=== PATIENT | male | born 1985 | race Two or more races ===

== ENCOUNTER 2024-04-24 14:03 | Outpatient (RCR) | payer MEDICAID, SELFPAY ==
--- NOTE | 2024-05-12 21:19 | CTCFLWUP_ITS ---
Patient: RAKESH ROCHE : 1985 Page 5 of 6 FOLLOW UP NOTE DATE OF SERVICE: 04/24/2024 NAME: RAKESH ROCHE ACCOUNT: [id number] : 1985 AGE: 38 INTERVAL HISTORY: Patient doing well . 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 2018: Mr. Roche had a right orchiectomy for what appears to be right inguinal hernia repair according to Mr. Roche. 08/2022: Mr. Roche had a left orchiectomy at [facility] oncology history from [facility] 07/07/2023: CT scan of the abdomen and pelvis with IV contrast 07/07/2023: CT scan of the chest without contrast 07/24/2023: Beta-hCG 7. 08/08/2022: Beta-hCG 16. 08/21/2023: Patient was started on cycle 1 of BEP chemotherapy. 09/11/2023: Mr. Roche is started on cycle 2 of BEP chemotherapy. 09/12/2023: Beta-hCG less than 5 10/25/2023: Patient completed third cycle of BEP chemotherapy. 11/21/2023: Beta-hCG less than 0, AFP 2.70 12/15/2023: CT scan of the neck, chest and abdomen with and without contrast OTHER MEDICAL HISTORY/CONDITIONS: Testicular?cancer?-?dx?08/[address] [facility] Left orchiectomy - 08/2022 - [facility] Right orchiectomy - 2017 - Dr. Derrick Cespedes Right inguinal hernia repair - age 24 FAMILY HISTORY: Cancer History:?Mat amhtfsoobae-kijigdcdmm-sf 60's;Mat aunt-breast - dx 50's SOCIAL HISTORY: Occupational?History:?Unemployed Education?Level:?Completed High School Marital?Status:? Tobacco?Use:?Denies ETOH?Use:?5-6?beers/week?x?21?yrs Drug?Note:?Denies Social?History?Note:?Lives?with? MEDICATIONS: 1. hydroxyzine HCl - 25 mg 1 tab Every day before sleep 2. insulin asp prt-insulin aspart - 100 unit/mL (70-30) 1 Daily 3. Jardiance - 25 mg 1 tab Daily 4. metFORMIN - 1,000 mg 1 tab Twice a Day 5. pantoprazole - 20 mg 1 Daily 6. testosterone - 20.25 mg/1.25 gram (1.62 %) 81 mg Daily Medications Last Reconciled by Sylvie Holm RN on 04/24/2024 ALLERGIES: No Known Drug Allergies REVIEW OF SYSTEMS: A complete 14-point review of systems was performed and is negative except as noted in interval histo ry. PHYSICAL EXAMINATION: VITAL SIGNS: Temperature?99.1, B/P?151/98, Oxygen?Saturation?97% Weight?238?lbs PAIN: 0 - No pain ECOG Performance Status: 0 - Asymptomatic and fully active GENERAL APPEARANCE: Appears well, in no apparent distress, appropriately interactive. HEENT: Normocephalic, no temporal wasting, normal conjunctiva, no scleral icterus, normal hearing, li ps without lesions, neck normal range of motion. CARDIOVASCULAR: Not assessed. PULMONARY: Normal respiratory effort, no respiratory distress or use of accessory muscles, speaking i n full sentences, no tachypnea. EXTREMITIES: No pedal edema or cyanosis. SKIN: Normal skin appearance. NEUROLOGIC: Alert and oriented x4. PSHYCHIATRIC: Appropriate affect, mood normal, behavior normal, intact thought and speech. LABORATORY DATA: I have personally reviewed and interpreted each of the patient?s relevant lab tests, abnormal finding s are below: Date 12/22/23 ??GLUCOSE,RANDOM?(mg/dL) 126?H ??BLOOD?UREA?NITROGEN?(mg/dL) 5?L ??CREATININE?(mg/dL) 0.90 ??SODIUM?(mmol/L) 136 ??POTASSIUM?(mmol/L) 3.8 ??CHLORIDE?(mmol/L) 102 ??CrCl?(CandG)?(ml/min) 122.22 ??CALCIUM,?SERUM?(mg/dL) 10.1 ASSESSMENT/PLAN: 1. 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 CT scan of the chest abdomen pelvis with and without contrast showed a 7 mm pulmonary nodule in the a nterior segment of the right upper lobe and small abdominal pelvic lymph nodes measuring 3 to 8 mm as documented above are noted. S/p 3 cycles of BEP chemotherapy completed on 10/25/2023. Left-sided neck masS is not palpable any longer. His beta-hCG has decreased to less than 0, AFP 2.70 (11/21/2023) CBC, CMP, beta-hCG as well as AFP today as well as prior to next visit in [address] scan of the neck, chest abdomen and pelvis with and without contrast to be done 1 week prior to ne xt visit in 3 months. ORDERS: Cbc,cmp,b hcg,ldh RETURN TO CLINIC: 6 months BILLING AND COMPLIANCE: I reviewed external records from providers outside my specialty as summarized above. I spent a total of 50 minutes on this patient?s care on the day of their visit excluding time spent related to any bi lled procedures. This time includes time spent with the patient as well as time spent documenting in the medical record, reviewing patients records and tests, obtaining history, placing orders, communi cating with other healthcare professionals, counseling the patient, family or caregiver, and/or care coordination for the diagnoses above. Electronically Signed by: Eusebio Bob MD T: 9:17 PM CC: PCP: Referring: Fuad Andres This document was completed utilizing speech recognition software. Grammatical errors, random word in sertions, pronoun errors, and incomplete sentences are an occasional consequence of this system due t o software limitations, ambient noise, and hardware issues. Any formal questions or concerns about th e content, text or information contained within the body of this dictation should be directly address ed to the provider for clarification.
== END 2024-05-14 23:59 | disposition home or self-care (01) ==
LOC: SCTC 14:03
PROVIDERS: PCP Family Medicine; Referring Provider Family Medicine; Visit Provider Internal Medicine Hematology & Oncology
DX: C62.12 Malignant neoplasm of descended left testis (principal); R91.1 Solitary pulmonary nodule; R59.0 Localized enlarged lymph nodes
CPT/HCPCS: 99212; Q3014; G0463

== ENCOUNTER 2024-06-20 14:18 | Outpatient (RCR) | payer MEDICAID, SELFPAY ==
[2024-06-19 16:10] LABS: Basophils % (Auto) 1 % (0-2.5); Eosinophils % (Auto) 1 % (0-10); Hematocrit 45.3 % (41.0-53.0); Hemoglobin 15.5 g/dL (13.5-16.0); Immature Granulocytes % (Auto) 1 % (0-0); Immature Granulocytes Auto 0.07 Thou/mm3 (0.00-0.00); Lymphocytes # (Auto) 1.2 Thou/mm3 (1.0-4.8); Lymphocytes % (Auto) 15 % (10-50); Mean Corpuscular HGB Conc 34.2 g/dl (31.0-37.0); Mean Corpuscular Hemoglobin 31.5 pg (25.0-35.0); Mean Corpuscular Volume 92 fL (80-100); Monocytes # (Auto) 0.7 Thou/mm3 (0.0-0.8); Monocytes % (Auto) 9 % (0-12); Neutrophils # (Auto) 5.8 Thou/mm3 (1.8-7.7); Neutrophils % (Auto) 74 % (37-80); Nucleated Red Blood Cell % 0 /100 WBC (0); Platelet Count 200 Thou/mm3 (140-440); RDW Standard Deviation 41.6 fL (35.1-43.9); Red Blood Count 4.92 Miln/mm3 (4.50-5.90); White Blood Count 7.8 Thou/mm3 (3.8-10.6)
[2024-06-19 16:46] LABS: Alanine Aminotransferase 75 U/L (10-49); Albumin, Serum 4.8 gm/dL (3.5-5.0); Albumin/Globulin Ratio 1.7 (1.2-2.2); Alkaline Phosphatase 106 U/L (46-116); Anion Gap 14 (7-16); Aspartate Amino Transferase 35 U/L (0-34); BUN/Creatinine Ratio 11 Ratio (12-20); Bilirubin,Total 0.6 mg/dL (0.3-1.2); Blood Urea Nitrogen 9 mg/dL (9-23); Calcium 9.3 mg/dL (8.3-10.6); Calcium (Corrected) 9.3 mg/dL (8.5-10.1); Carbon Dioxide 22.1 mMol/L (20.0-31.0); Chloride 100 mMol/L (98-107); Creatinine (Component) 0.8 mg/dL (0.6-1.3); Globulin 2.9 gm/dL (2.3-3.5); Glucose 105 mg/dL (74-106); LDH (Lactate Dehydrogenase) 199 U/L (120-246); Osmolality,Calculated 270 (275-295); Potassium 3.3 mMol/L (3.4-5.1); Sodium 136 mMol/L (136-145); Total Protein 7.7 gm/dL (5.7-8.2); eGFR > 60 See Note
--- NOTE | 2024-06-23 22:48 | CTCFLWUP_ITS ---
Patient: RAKSEH ROCHE : 1985 Page 5 of 6 FOLLOW UP NOTE DATE OF SERVICE: 06/20/2024 NAME: RAKESH ROCHE ACCOUNT: [id number] : 1985 AGE: 39 INTERVAL HISTORY: Patient doing well . ONCOLOGY HISTORY: DIAGNOSIS: Malignant neoplasm of descended left testis [ICD10] C62.12 DATE OF DIAGNOSIS: STAGE/TNM: Stage 3 TREATMENT HISTORY: Care?Plan Start?Date Cycle Day Intent Cisplat?Etoposide?Bleomycin?q21?days?3?cycles 08/21/2023 1 21 Curative?(adjuvant) HISTORY OF PRESENT ILLNESS: Rakesh Roche is a 39-year-old ENG speaking male with following oncology history. 2018: Mr. Roche had a right orchiectomy for what appears to be right inguinal hernia repair according to Mr. Roche. 08/2022: Mr. Roche had a left orchiectomy at [facility] oncology history from [facility] 07/07/2023: CT scan of the abdomen and pelvis with IV contrast 07/07/2023: CT scan of the chest without contrast 07/24/2023: Beta-hCG 7. 08/08/2022: Beta-hCG 16. 08/21/2023: Patient was started on cycle 1 of BEP chemotherapy. 09/11/2023: Mr. Roche is started on cycle 2 of BEP chemotherapy. 09/12/2023: Beta-hCG less than 5 10/25/2023: Patient completed third cycle of BEP chemotherapy. 11/21/2023: Beta-hCG less than 0, AFP 2.70 12/15/2023: CT scan of the neck, chest and abdomen with and without contrast OTHER MEDICAL HISTORY/CONDITIONS: Testicular?cancer?-?dx?08/2022 [facility] Left orchiectomy - 08/2022 - [facility] Right orchiectomy - 2017 - Dr. Derrick Cespedes Right inguinal hernia repair - age 24 FAMILY HISTORY: Cancer History:?Mat gbsxycnccod-deqjbfwlwe-ps 60's;Mat aunt-breast - dx 50's SOCIAL HISTORY: Occupational?History:?Unemployed Education?Level:?Completed High School Marital?Status:? Tobacco?Use:?Denies ETOH?Use:?5-6?beers/week?x?21?yrs Drug?Note:?Denies Social?History?Note:?Lives?with? MEDICATIONS: 1. hydroxyzine HCl - 25 mg 1 tab Every day before sleep 2. insulin asp prt-insulin aspart - 100 unit/mL (70-30) 1 Daily 3. Jardiance - 25 mg 1 tab Daily 4. metFORMIN - 1,000 mg 1 tab Daily 5. Ozempic - 0.25 mg or 0.5 mg (2 mg/3 mL) Weekly 6. pantoprazole - 20 mg 1 Daily 7. testosterone - 20.25 mg/1.25 gram (1.62 %) 81 mg Daily Medications Last Reconciled by Irena Torres MA on 06/20/2024 ALLERGIES: No Known Drug Allergies REVIEW OF SYSTEMS: A complete 14-point review of systems was performed and is negative except as noted in interval history. PHYSICAL EXAMINATION: VITAL SIGNS: Temperature?99.9, B/P?143/87, Oxygen?Saturation?98% Weight?240?lbs (Change?since?06/19/24:?-0.6?lbs) PAIN: 0 - No pain ECOG Performance Status: 0 - Asymptomatic and fully active GENERAL APPEARANCE: Appears well, in no apparent distress, appropriately interactive. HEENT: Normocephalic, no temporal wasting, normal conjunctiva, no scleral icterus, normal hearing, lips without lesions, neck normal range of motion. CARDIOVASCULAR: Not assessed. PULMONARY: Normal respiratory effort, no respiratory distress or use of accessory muscles, speaking in full sentences, no tachypnea. EXTREMITIES: No pedal edema or cyanosis. SKIN: Normal skin appearance. NEUROLOGIC: Alert and oriented x4. PSHYCHIATRIC: Appropriate affect, mood normal, behavior normal, intact thought and speech. LABORATORY DATA: I have personally reviewed and interpreted each of the patient?s relevant lab tests, abnormal findings are below: Date 06/19/24 ??WHITE?BLOOD?COUNT?(Thou/mm3) 7.8 ??RED?BLOOD?COUNT?(Miln/mm3) 4.92 ??HEMOGLOBIN?(gm/dl) 15.5 ??HEMATOCRIT?(%) 45.3 ??PLATELET?COUNT?(Thou/mm3) 200 ??NEUTROPHILS?%,?AUTO?(%) 74 ??LYMPH?%,?AUTO?(%) 15 ??NEUTROPHILS,?AUTO?(Thou/mm3) 5.8 ASSESSMENT/PLAN: 1. 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 CT scan of the chest abdomen pelvis with and without contrast showed a 7 mm pulmonary nodule in the anterior segment of the right upper lobe and small abdominal pelvic lymph nodes measuring 3 to 8 mm as documented above are noted. S/p 3 cycles of BEP chemotherapy completed on 10/25/2023. Left-sided neck masS is not palpable any longer. His beta-hCG has decreased to less than 0, AFP 2.70 (11/21/2023) CBC, CMP, beta-hCG as well as AFP today as well as prior to next visit in [address] scan of the neck, chest abdomen and pelvis with and without contrast to be done 1 week prior to next visit in 3 months. ORDERS: Cbc,cmp,ferritin.ldh,uric vit b12 Sleep study RETURN TO CLINIC: 2 months BILLING AND COMPLIANCE: I reviewed external records from providers outside my specialty as summarized above. I spent a total of 50 minutes on this patient?s care on the day of their visit excluding time spent related to any billed procedures. This time includes time spent with the patient as well as time spent documenting in the medical record, reviewing patients records and tests, obtaining history, placing orders, communicating with other healthcare professionals, counseling the patient, family or caregiver, and/or care coordination for the diagnoses above. Electronically Signed by: Eusebio Bob MD T: 10:46 PM CC: PCP: Referring: Fuad Andres This document was completed utilizing speech recognition software. Grammatical errors, random word insertions, pronoun errors, and incomplete sentences are an occasional consequence of this system due to software limitations, ambient noise, and hardware issues. Any formal questions or concerns about the content, text or information contained within the body of this dictation should be directly addressed to the provider for clarification.
[2024-06-25 06:54] LABS: HCG Total,Male (Tumor Marker)* <5 mIU/mL (<5)
== END 2024-07-12 23:59 | disposition home or self-care (01) ==
LOC: SCTC 14:18
PROVIDERS: PCP Family Medicine; Referring Provider Family Medicine; Visit Provider Internal Medicine Hematology & Oncology
DX: C62.12 Malignant neoplasm of descended left testis (principal); Z90.79 Acquired absence of other genital organ(s); R91.1 Solitary pulmonary nodule; Z92.21 Personal history of antineoplastic chemotherapy
CPT/HCPCS: 36591; 80053; 82105; 83615; 84702; 85025; 99212; A4216; J1642; G0463

== ENCOUNTER 2024-08-15 15:31 | Outpatient (RCR) | payer MEDICAID, SELFPAY ==
[2024-08-14 11:08] LABS: Basophils % (Auto) 1 % (0-2.5); Eosinophils # (Auto) 0.1 Thou/mm3 (0.0-0.5); Eosinophils % (Auto) 1 % (0-10); Hematocrit 46.8 % (41.0-53.0); Hemoglobin 16.3 g/dL (13.5-16.0); Immature Granulocytes % (Auto) 1 % (0-0); Immature Granulocytes Auto 0.06 Thou/mm3 (0.00-0.00); Lymphocytes # (Auto) 1.2 Thou/mm3 (1.0-4.8); Lymphocytes % (Auto) 14 % (10-50); Mean Corpuscular HGB Conc 34.8 g/dl (31.0-37.0); Mean Corpuscular Hemoglobin 31.9 pg (25.0-35.0); Mean Corpuscular Volume 92 fL (80-100); Monocytes # (Auto) 0.7 Thou/mm3 (0.0-0.8); Monocytes % (Auto) 8 % (0-12); Neutrophils # (Auto) 6.4 Thou/mm3 (1.8-7.7); Neutrophils % (Auto) 75 % (37-80); Nucleated Red Blood Cell % 0 /100 WBC (0); Platelet Count 232 Thou/mm3 (140-440); RDW Standard Deviation 43.2 fL (35.1-43.9); Red Blood Count 5.11 Miln/mm3 (4.50-5.90); White Blood Count 8.5 Thou/mm3 (3.8-10.6)
[2024-08-14 11:17] LABS: Alanine Aminotransferase 82 U/L (10-49); Albumin, Serum 4.7 gm/dL (3.5-5.0); Albumin/Globulin Ratio 1.7 (1.2-2.2); Alkaline Phosphatase 94 U/L (46-116); Anion Gap 11 (7-16); Aspartate Amino Transferase 41 U/L (0-34); BUN/Creatinine Ratio 9 Ratio (12-20); Beta HCG,Quantitative 1 mIU/mL; Bilirubin,Total 0.5 mg/dL (0.3-1.2); Blood Urea Nitrogen 8 mg/dL (9-23); Calcium 9.3 mg/dL (8.3-10.6); Calcium (Corrected) 9.3 mg/dL (8.5-10.1); Carbon Dioxide 22.7 mMol/L (20.0-31.0); Chloride 102 mMol/L (98-107); Creatinine (Component) 0.9 mg/dL (0.6-1.3); Globulin 2.7 gm/dL (2.3-3.5); Glucose 113 mg/dL (74-106); LDH (Lactate Dehydrogenase) 190 U/L (120-246); Osmolality,Calculated 271 (275-295); Potassium 3.8 mMol/L (3.4-5.1); Sodium 136 mMol/L (136-145); Total Protein 7.4 gm/dL (5.7-8.2); eGFR > 60 See Note
[2024-08-14 11:18] LABS: AFP Non-Pregnant < 1.30 ng/mL (<8.10); Ferritin 179 ng/mL (10.5-307.3); Folate 16.06 ng/mL (>5.38); Iron 101 mcg/dL (65-175); Percent Iron Saturation 28 % (20-55); Total Iron Binding Capacity 358 mcg/dL (250-425); Unsaturated Iron Binding 257 (225-295); Vitamin B12 301 pg/mL (211-911)
--- NOTE | 2024-08-21 01:20 | CTCFLWUP_ITS ---
Patient: RAKESH ROCHE : 1985 Page 5 of 7 FOLLOW UP NOTE DATE OF SERVICE: 08/15/2024 NAME: RAKESH ROCHE ACCOUNT: [id number] : 1985 AGE: 39 INTERVAL HISTORY: Patient doing well . ONCOLOGY HISTORY: DIAGNOSIS: Malignant neoplasm of descended left testis [ICD10] C62.12 DATE OF DIAGNOSIS: STAGE/TNM: Stage 3 TREATMENT HISTORY: Care?Plan Start?Date Cycle Day Intent Cisplat?Etoposide?Bleomycin?q21?days?3?cycles 08/21/2023 1 21 Curative?(adjuvant) HISTORY OF PRESENT ILLNESS: Rakesh Roche is a 39-year-old ENG speaking male with following oncology history. 2018: Mr. Roche had a right orchiectomy for what appears to be right inguinal hernia repair according to Mr. Roche. 08/2022: Mr. Roche had a left orchiectomy at [facility] oncology history from [facility] 07/07/2023: CT scan of the abdomen and pelvis with IV contrast 07/07/2023: CT scan of the chest without contrast 07/24/2023: Beta-hCG 7. 08/08/2022: Beta-hCG 16. 08/21/2023: Patient was started on cycle 1 of BEP chemotherapy. 09/11/2023: Mr. Roche is started on cycle 2 of BEP chemotherapy. 09/12/2023: Beta-hCG less than 5 10/25/2023: Patient completed third cycle of BEP chemotherapy. 11/21/2023: Beta-hCG less than 0, AFP 2.70 12/15/2023: CT scan of the neck, chest and abdomen with and without contrast OTHER MEDICAL HISTORY/CONDITIONS: Testicular?cancer?-?dx?08/2022 [facility] Left orchiectomy - 08/2022 - [facility] Right orchiectomy - 2017 - Dr. Derrick Cespedes Right inguinal hernia repair - age 24 FAMILY HISTORY: Cancer History:?Mat lzaebqzpaij-puruigseuv-to 60's;Mat aunt-breast - dx 50's SOCIAL HISTORY: Occupational?History:?Unemployed Education?Level:?Completed High School Marital?Status:? Tobacco?Use:?Denies ETOH?Use:?5-6?beers/week?x?21?yrs Drug?Note:?Denies Social?History?Note:?Lives?with? MEDICATIONS: 1. hydroxyzine HCl - 25 mg 1 tab Every day before sleep 2. insulin asp prt-insulin aspart - 100 unit/mL (70-30) 1 Daily 3. Jardiance - 25 mg 1 tab Daily 4. metFORMIN - 1,000 mg 1 tab Twice a Day 5. Ozempic - 0.25 mg or 0.5 mg (2 mg/3 mL) Weekly 6. pantoprazole - 20 mg 1 Daily 7. testosterone - 20.25 mg/1.25 gram (1.62 %) 81 mg Daily Medications Last Reconciled by Irena Torres MA on 08/15/2024 ALLERGIES: No Known Drug Allergies REVIEW OF SYSTEMS: A complete 14-point review of systems was performed and is negative except as noted in interval history. PHYSICAL EXAMINATION: VITAL SIGNS: Temperature?99.6, B/P?136/92, Oxygen?Saturation?97% Weight?242.2?lbs (Change?since?08/14/24:?-1.6?lbs) PAIN: 0 - No pain ECOG Performance Status: 0 - Asymptomatic and fully active GENERAL APPEARANCE: Appears well, in no apparent distress, appropriately interactive. HEENT: Normocephalic, no temporal wasting, normal conjunctiva, no scleral icterus, normal hearing, lips without lesions, neck normal range of motion. CARDIOVASCULAR: Not assessed. PULMONARY: Normal respiratory effort, no respiratory distress or use of accessory muscles, speaking in full sentences, no tachypnea. EXTREMITIES: No pedal edema or cyanosis. SKIN: Normal skin appearance. NEUROLOGIC: Alert and oriented x4. PSHYCHIATRIC: Appropriate affect, mood normal, behavior normal, intact thought and speech. LABORATORY DATA: I have personally reviewed and interpreted each of the patient?s relevant lab tests, abnormal findings are below: Date 08/14/24 ??WHITE?BLOOD?COUNT?(Thou/mm3) 8.5 ??RED?BLOOD?COUNT?(Miln/mm3) 5.11 ??HEMOGLOBIN?(gm/dl) 16.3?H ??HEMATOCRIT?(%) 46.8 ??PLATELET?COUNT?(Thou/mm3) 232 ??NEUTROPHILS?%,?AUTO?(%) 75 ??LYMPH?%,?AUTO?(%) 14 ??NEUTROPHILS,?AUTO?(Thou/mm3) 6.4 ??GLUCOSE,RANDOM?(mg/dL) 113?H ??BLOOD?UREA?NITROGEN?(mg/dL) 8?L ??CREATININE?(mg/dL) 0.90 ??SODIUM?(mmol/L) 136 ??POTASSIUM?(mmol/L) 3.8 ??CHLORIDE?(mmol/L) 102 ??CrCl?(CandG)?(ml/min) 125.21 ??AST/SGOT?(Unit/L) 41?H ??ALT/SGPT?(Unit/L) 82?H ??ALKALINE?PHOSPHATASE?(Unit/L) 94 ??BILIRUBIN,?TOTAL?(mg/dL) 0.5 ??PROTEIN?TOTAL?(gm/dl) 7.4 ??ALBUMIN,?SERUM?(gm/dl) 4.7 ??GLOBULIN?(gm/dl) 2.7 ??ALBUMIN/GLOBULIN?RATIO 1.7 ??CALCIUM,?SERUM?(mg/dL) 9.3 ??CALCIUM?SERUM?(CORRECTED)?(mg/dL) 9.3 ??LDH,?TOTAL?(Unit/L) 190 ??TOTAL?IRON?BINDING?CAP?(S*)?(mcg/dL) 358 ??UNBOUND?IBC?(mcg/dL) 257 ASSESSMENT/PLAN: 1. 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 CT scan of the chest abdomen pelvis with and without contrast showed a 7 mm pulmonary nodule in the anterior segment of the right upper lobe and small abdominal pelvic lymph nodes measuring 3 to 8 mm as documented above are noted. S/p 3 cycles of BEP chemotherapy completed on 10/25/2023. Left-sided neck masS is not palpable any longer. His beta-hCG has decreased to less than 0, AFP 2.70 (11/21/2023) CBC, CMP, beta-hCG as well as AFP today as well as prior to next visit in [address] scan of the neck, chest abdomen and pelvis with and without contrast to be done 1 week prior to next visit in 3 months. ORDERS: Order # Description [id number] CT Scan + Chest + Abdomen and Pelvis + With W/O Contrast [id number] AFP + bHCG - Quant (TM) [id number] Lactate Dehydrogenase (LDH) [id number] Erythropoieten Level + Testosterone; Total [id number] MD Follow Up 3 Months RETURN TO CLINIC: 3 monhts BILLING AND COMPLIANCE: I reviewed external records from providers outside my specialty as summarized above. I spent a total of 50 minutes on this patient?s care on the day of their visit excluding time spent related to any billed procedures. This time includes time spent with the patient as well as time spent documenting in the medical record, reviewing patients records and tests, obtaining history, placing orders, communicating with other healthcare professionals, counseling the patient, family or caregiver, and/or care coordination for the diagnoses above. Electronically Signed by: Eusebio Bob MD T: 1:17 AM CC: PCP: Referring: Fuad Andres This document was completed utilizing speech recognition software. Grammatical errors, random word insertions, pronoun errors, and incomplete sentences are an occasional consequence of this system due to software limitations, ambient noise, and hardware issues. Any formal questions or concerns about the content, text or information contained within the body of this dictation should be directly addressed to the provider for clarification.
== END 2024-09-11 23:59 | disposition home or self-care (01) ==
LOC: SCTC 15:31
PROVIDERS: PCP Family Medicine; Referring Provider Family Medicine; Visit Provider Internal Medicine Hematology & Oncology
DX: C62.12 Malignant neoplasm of descended left testis (principal); Z90.79 Acquired absence of other genital organ(s); Z92.21 Personal history of antineoplastic chemotherapy; R91.1 Solitary pulmonary nodule
CPT/HCPCS: 36415; 80053; 82105; 82607; 82728; 82746; 83540; 83550; 83615; 84702; 85025; 99212; G0463

== ENCOUNTER → 2024-09-19 | Outpatient (CLI) | payer MEDICAID, SELFPAY ==
[2024-09-19 09:36] LABS: Basophils % (Auto) 1 % (0-2.5); Eosinophils # (Auto) 0.1 Thou/mm3 (0.0-0.5); Eosinophils % (Auto) 1 % (0-10); Hematocrit 46.6 % (41.0-53.0); Hemoglobin 16.5 g/dL (13.5-16.0); Immature Granulocytes % (Auto) 1 % (0-0); Immature Granulocytes Auto 0.04 Thou/mm3 (0.00-0.00); Lymphocytes % (Auto) 16 % (10-50); Mean Corpuscular HGB Conc 35.4 g/dl (31.0-37.0); Mean Corpuscular Hemoglobin 32.5 pg (25.0-35.0); Mean Corpuscular Volume 92 fL (80-100); Monocytes # (Auto) 0.5 Thou/mm3 (0.0-0.8); Monocytes % (Auto) 8 % (0-12); Neutrophils # (Auto) 4.6 Thou/mm3 (1.8-7.7); Neutrophils % (Auto) 73 % (37-80); Nucleated Red Blood Cell % 0 /100 WBC (0); Platelet Count 220 Thou/mm3 (140-440); RDW Standard Deviation 42.2 fL (35.1-43.9); Red Blood Count 5.08 Miln/mm3 (4.50-5.90); White Blood Count 6.4 Thou/mm3 (3.8-10.6)
[2024-09-19 10:16] LABS: Alanine Aminotransferase 113 U/L (10-49); Albumin, Serum 4.6 gm/dL (3.5-5.0); Albumin/Globulin Ratio 1.6 (1.2-2.2); Alkaline Phosphatase 96 U/L (46-116); Anion Gap 11 (7-16); Aspartate Amino Transferase 57 U/L (0-34); BUN/Creatinine Ratio 8 Ratio (12-20); Bilirubin,Total 0.4 mg/dL (0.3-1.2); Blood Urea Nitrogen 7 mg/dL (9-23); Carbon Dioxide 25.2 mMol/L (20.0-31.0); Chloride 101 mMol/L (98-107); Creatinine (Component) 0.9 mg/dL (0.6-1.3); Globulin 2.9 gm/dL (2.3-3.5); Glucose 158 mg/dL (74-106); Osmolality,Calculated 274 (275-295); Potassium 3.8 mMol/L (3.4-5.1); Sodium 137 mMol/L (136-145); Total Protein 7.5 gm/dL (5.7-8.2); eGFR > 60 See Note
[2024-09-24 06:43] LABS: HCG Total,Male (Tumor Marker)* <5 mIU/mL (<5)
== END | disposition home or self-care (01) ==
LOC: SCTO 08:24
PROVIDERS: Referring Provider Internal Medicine Hematology & Oncology; Visit Provider Internal Medicine Hematology & Oncology
DX: C62.12 Malignant neoplasm of descended left testis (principal)
CPT/HCPCS: 36415; 80053; 82105; 84702; 85025

== ENCOUNTER → 2024-09-19 | Outpatient (CLI) | payer MEDICAID, SELFPAY ==
--- NOTE | 2024-09-19 15:00 | XR_ITS ---
Examination: CT chest with intravenous contrast CT abdomen with intravenous contrast CT pelvis with intravenous contrast CT chest without intravenous contrast CTA abdomen without intravenous contrast CT pelvis without intravenous contrast 2-D coronal and sagittal reconstructions Time of exam: September 19, 2024 1502 hours Comparison December 15, 2023 INDICATIONS: Diagnosis malignant neoplasm left testis 5 years ago, restaging, 7 mm pulmonary nodule anterior segment right upper lobe on CT chest abdomen pelvis December 15, 2023 as well as 8 mm left lateral periaortic lymph node 3 mm retroaortic 3 mm left common iliac lymph nodes CTDI: vol (mGy) : 22.3 DLP: (mGycm): 1883 Technique: Multiple axial images of the chest, abdomen and pelvis with intravenous contrast, 3.0 mm slice thickness. Images obtained post intravenous injection Isovue 370 60 cc. 2-D sagittal and coronal reconstructions. Low dose protocols were performed. One or more of the following dose reduction techniques were used; automated exposure control, adjustment of the mA and/or KV according to patient size, use of iterative reconstruction technique. Findings: No thoracic aortic aneurysm dilatation Pulmonary artery segments are not enlarged No interval paratracheal tracheobronchial or bronchopulmonary adenopathy 7 mm pulmonary nodule right upper lobe described on December 15, 2023 is not present on the current exam No interval pneumonia or pulmonary edema or pleural disease Severe diffuse fatty infiltration throughout the liver no focal liver or splenic lesions No gallstones No pancreatic or adrenal mass Stable 8 mm left lateral periaortic lymph node Stable 3 mm retroaortic lymph node Stable 3 mm left common iliac lymph node No new abdominal or pelvic lymphadenopathy Bladder intact No prostatomegaly Presumed postoperative change in the left groin region Mild osteopenia IMPRESSION: 7 mm pulmonary nodule right upper lobe on CT chest December 15, 2023 not present on this study No mediastinal lymphadenopathy, no current pulmonary nodules noted Stable small periaortic and left common iliac lymph nodes compared with December 15, 2023, no interval abdominal or pelvic lymphadenopathy No interval metastatic disease
== END | disposition home or self-care (01) ==
LOC: CCTX 14:18
PROVIDERS: PCP Physician Assistant; Referring Provider Internal Medicine Hematology & Oncology; Visit Provider Internal Medicine Hematology & Oncology
DX: R91.8 Other nonspecific abnormal finding of lung field (principal); C62.12 Malignant neoplasm of descended left testis
CPT/HCPCS: 71270; 74178; A4649; Q9967

== ENCOUNTER 2024-11-14 10:36 | Outpatient (RCR) | payer MEDICAID, SELFPAY ==
--- NOTE | 2024-12-02 00:02 | CTCFLWUP_ITS ---
Patient: RAKESH ROCHE : 1985 Page 6 of 9 FOLLOW UP NOTE DATE OF SERVICE: 11/14/2024 NAME: RAKESH ROCHE ACCOUNT: [id number] : 1985 AGE: 39 INTERVAL HISTORY: Rakesh, a young male with uncontrolled diabetes, presented with abnormal CT findings. His medical history includes obesity and diabetes. Recent CT scan showed left maxillary sinus infection and severe bilateral endobronchial lung involvement, a significant change from normal findings one month prior. He reported taking Mounjaro 2.3mg and Ozempic with associated nausea. Treatment plan included increasing glucose-lowering medication, initiating broad-spectrum antibiotics and antifungals, ordering blood work including tests for valley fever and HIV, and referrals to pulmonology and ENT specialists. Subjective: Chief Complaint Abnormal CT scan findings, sinus infection, uncontrolled diabetes History of Present Illness Rakesh Roche, a young male patient with a history of diabetes, presents with concerns about recent infections and complications related to his uncontrolled diabetes. The patient reports having a bad infection in the left maxillary sinus and possible lung involvement. The patient mentions that he was planning to see his primary care doctor on Monday for these issues. He acknowledges having uncontrolled glucose levels and being overweight, which are contributing to his current health problems. The patient reports taking medication, possibly for weight loss, at a dose of 2.3 (units not specified), which has been causing nausea. The patient's recent CT scan on October 22 showed significant changes compared to a previous scan on September 19, which was reportedly all good. The patient denies any specific events or travel between these dates that might explain the rapid change in his condition. He also denies any risk factors for HIV infection or IV drug use. Medications and Supplements - Mounjaro 2.3 mg - Causes nausea - Ozempic Review of Systems Respiratory: Positive for cough. Objective: Laboratory, Imaging, and Diagnostic Test Results - CT scan (September 19, 2024): All good - CT scan (October 22, 2024): - Left maxillary sinus: Infection noted - Lungs: Fully involved, consistent with endobronchial infection - Right lung: Particularly affected - Left lung: Also present - Labs (September 2024): All good Obesity Assessment: Patient's weight is contributing to poor diabetes control and overall health complications. Current weight loss efforts have been insufficient. 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 2018: Mr. Roche had a right orchiectomy for what appears to be right inguinal hernia repair according to Mr. Roche. 08/2022: Mr. Roche had a left orchiectomy at [facility] oncology history from [facility] 07/07/2023: CT scan of the abdomen and pelvis with IV contrast 07/07/2023: CT scan of the chest without contrast 07/24/2023: Beta-hCG 7. 08/08/2022: Beta-hCG 16. 08/21/2023: Patient was started on cycle 1 of BEP chemotherapy. 09/11/2023: Mr. Roche is started on cycle 2 of BEP chemotherapy. 09/12/2023: Beta-hCG less than 5 10/25/2023: Patient completed third cycle of BEP chemotherapy. 11/21/2023: Beta-hCG less than 0, AFP 2.70 12/15/2023: CT scan of the neck, chest and abdomen with and without contrast OTHER MEDICAL HISTORY/CONDITIONS: Testicular?cancer?-?dx?08/2022 GERD Left orchiectomy - 08/2022 - [facility] Right orchiectomy - 2018 - Dr. Derrick Cespedes Right inguinal hernia repair - age 24 FAMILY HISTORY: Cancer History:?Mat cynscugjova-exwqkudqsy-iv 60's;Mat aunt-breast - dx 50's SOCIAL HISTORY: Occupational?History:?Unemployed Education?Level:?Completed High School Marital?Status:? Tobacco?Use:?Denies ETOH?Use:?5-6?beers/week?x?21?yrs Drug?Note:?Denies Social?History?Note:?Lives?with? MEDICATIONS: 1. fluconazole - 150 mg 1 tab Daily 2. hydroxyzine HCl - 25 mg 1 tab Every day before sleep 3. insulin asp prt-insulin aspart - 100 unit/mL (70-30) 1 Daily 4. Jardiance - 25 mg 1 tab Daily 5. levoFLOXacin - 750 mg 1 tab Daily 6. metFORMIN - 1,000 mg 1 tab Twice a Day 7. Ozempic - 0.25 mg or 0.5 mg (2 mg/3 mL) Weekly 8. pantoprazole - 20 mg 1 Daily 9. testosterone - 20.25 mg/1.25 gram (1.62 %) 81 mg Daily Medications Last Reconciled by Shasta Olmstead MA on 11/14/2024 ALLERGIES: No Known Drug Allergies REVIEW OF SYSTEMS: A complete 14-point review of systems was performed and is negative except as noted in interval history. PHYSICAL EXAMINATION: VITAL SIGNS: Temperature?98.2, B/P?153/94, Oxygen?Saturation?96% PAIN: 0 - No pain ECOG Performance Status: 0 - Asymptomatic and fully active GENERAL APPEARANCE: Appears well, in no apparent distress, appropriately interactive. HEENT: Normocephalic, no temporal wasting, normal conjunctiva, no scleral icterus, normal hearing, lips without lesions, neck normal range of motion. CARDIOVASCULAR: Not assessed. PULMONARY: Normal respiratory effort, no respiratory distress or use of accessory muscles, speaking in full sentences, no tachypnea. EXTREMITIES: No pedal edema or cyanosis. SKIN: Normal skin appearance. NEUROLOGIC: Alert and oriented x4. PSHYCHIATRIC: Appropriate affect, mood normal, behavior normal, intact thought and speech. LABORATORY DATA: I have personally reviewed and interpreted each of the patient?s relevant lab tests, abnormal findings are below: Date 08/14/24 09/19/24 ??WHITE?BLOOD?COUNT?(Thou/mm3) 8.5 6.4 ??RED?BLOOD?COUNT?(Miln/mm3) 5.11 5.08 ??HEMOGLOBIN?(gm/dl) 16.3?H 16.5?H ??HEMATOCRIT?(%) 46.8 46.6 ??PLATELET?COUNT?(Thou/mm3) 232 220 ??NEUTROPHILS?%,?AUTO?(%) 75 73 ??LYMPH?%,?AUTO?(%) 14 16 ??NEUTROPHILS,?AUTO?(Thou/mm3) 6.4 4.6 ??GLUCOSE,RANDOM?(mg/dL) 113?H 158?H ??BLOOD?UREA?NITROGEN?(mg/dL) 8?L 7?L ??CREATININE?(mg/dL) 0.90 0.90 ??SODIUM?(mmol/L) 136 137 ??POTASSIUM?(mmol/L) 3.8 3.8 ??CHLORIDE?(mmol/L) 102 101 ??CrCl?(CandG)?(ml/min) 125.21 124.76 ??AST/SGOT?(Unit/L) 41?H 57?H ??ALT/SGPT?(Unit/L) 82?H 113?H ??ALKALINE?PHOSPHATASE?(Unit/L) 94 96 ??BILIRUBIN,?TOTAL?(mg/dL) 0.5 0.4 ??PROTEIN?TOTAL?(gm/dl) 7.4 7.5 ??ALBUMIN,?SERUM?(gm/dl) 4.7 4.6 ??GLOBULIN?(gm/dl) 2.7 2.9 ??ALBUMIN/GLOBULIN?RATIO 1.7 1.6 ??CALCIUM,?SERUM?(mg/dL) 9.3 9.0 ??CALCIUM?SERUM?(CORRECTED)?(mg/dL) 9.3 9.0 ASSESSMENT/PLAN: 1. 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 CT scan of the chest abdomen pelvis with and without contrast showed a 7 mm pulmonary nodule in the anterior segment of the right upper lobe and small abdominal pelvic lymph nodes measuring 3 to 8 mm as documented above are noted. S/p 3 cycles of BEP chemotherapy completed on 10/25/2023. Left-sided neck masS is not palpable any longer. His beta-hCG has decreased to less than 0, AFP 2.70 (11/21/2023) CBC, CMP, beta-hCG as well as AFP today as well as prior to next visit in 3 months. No suspicion for recurrence Patient has not completed labs for his tumor markers Uncontrolled Diabetes Mellitus Type 2 Assessment: Patient has poorly controlled diabetes with an elevated A1C (exact value not specified). The uncontrolled diabetes is contributing to multiple complications and infections. Patient's current glucose-lowering medication (possibly Mounjaro or Ozempic) at 2.3 mg is insufficient for glycemic control. The severity of diabetes-related complications at a young age indicates urgent need for improved management. Plan: - Increase dose of current glucose-lowering medication (specific medication and new dose not specified) - Order comprehensive blood work including glucose and A1C - Recommend weight loss - Educate on daily exercise importance - Advise on dietary modifications - Discuss risks of uncontrolled diabetes, including accelerated aging and organ damage - Follow up with primary care physician on Monday to review blood work and adjust diabetes management Severe Pulmonary Infection Assessment: CT scan from October 22 reveals severe lung involvement, particularly in the right lung but also present on the left, consistent with endobronchial infection. This is a significant change from the September 19 CT scan, which was reportedly normal. The rapid progression and severity of the infection are concerning, especially given the patient's diabetic status which may mask symptoms. Plan: - Initiate broad-spectrum antibiotics for 3 days (specific antibiotic not mentioned) - Initiate antifungal medication (specific medication not mentioned) - Order blood tests including tests for valley fever and HIV - Refer to aeronautical engineer for further evaluation and management - Advise immediate medical attention if symptoms worsen Left Maxillary Sinusitis Assessment: CT scan reveals a severe infection in the left maxillary sinus. Given the concurrent pulmonary infection and the patient's diabetic status, there is concern for a potentially fungal etiology and risk of spread to surrounding structures, including the eye. Plan: - Initiate broad-spectrum antibiotics (as part of treatment for pulmonary infection) - Initiate antifungal medication (as part of treatment for pulmonary infection) - Refer to ENT specialist for further evaluation and management - Advise patient to monitor for any eye-related symptoms ORDERS: Order # Description [id number] Comprehensive Metabolic Panel - 12 + CBC with Auto Diff [id number] Antibody; Coccidioides Immitis + QuantiFERON-TB Gold Plus ([facility] TEST:[id number] CPT: 85108) [id number] HIV-1/HIV-2 Single Assay [id number] Comprehensive Metabolic Panel - 12 + CBC with Auto Diff + AFP + bHCG - Quant (TM) [id number] Lactate Dehydrogenase (LDH) [id number] MD Follow Up 3 Months RETURN TO CLINIC: I reviewed the diagnosis, prognosis, and recommended treatment/procedure options with the patient (and/or their legal asset protection representative), including the potential benefits, risks, side effects and alternative therapies. We also discussed the option of no treatment and the possibility of clinical trial participation, if applicable. All questions were addressed, and they demonstrated understanding. They provided informed consent to proceed with the proposed plan of care. BILLING AND COMPLIANCE: I reviewed external records from providers outside my specialty as summarized above. I spent a total of 50 minutes on this patient?s care on the day of their visit excluding time spent related to any billed procedures. This time includes time spent with the patient as well as time spent documenting in the medical record, reviewing patients records and tests, obtaining history, placing orders, communicating with other healthcare professionals, counseling the patient, family or caregiver, and/or care coordination for the diagnoses above. Electronically Signed by: Eusebio Bob MD T: 11:59 PM CC: PCP: Referring: Arley Carmichael This document was completed utilizing speech recognition software. Grammatical errors, random word insertions, pronoun errors, and incomplete sentences are an occasional consequence of this system due to software limitations, ambient noise, and hardware issues. Any formal questions or concerns about the content, text or information contained within the body of this dictation should be directly addressed to the provider for clarification.
== END 2024-12-12 23:59 | disposition home or self-care (01) ==
LOC: SCTC 10:36
PROVIDERS: PCP Physician Assistant; Referring Provider Physician Assistant; Visit Provider Internal Medicine Hematology & Oncology
DX: C62.12 Malignant neoplasm of descended left testis (principal); R59.0 Localized enlarged lymph nodes; R91.1 Solitary pulmonary nodule; Z92.21 Personal history of antineoplastic chemotherapy; E11.65 Type 2 diabetes mellitus with hyperglycemia; Z79.84 Long term (current) use of oral hypoglycemic drugs; Z79.4 Long term (current) use of insulin; J18.9 Pneumonia, unspecified organism; J32.0 Chronic maxillary sinusitis
CPT/HCPCS: 99212; G0463

== ENCOUNTER 2025-02-17 10:27 | Outpatient (RCR) | payer MEDICAID, SELFPAY ==
--- NOTE | 2025-02-17 13:15 | CTCFLWUP_ITS ---
Patient: RAKESH ROCHE : 1985 Page 5 of 8 FOLLOW UP NOTE DATE OF SERVICE: 02/17/2025 NAME: RAKESH ROCHE ACCOUNT: [id number] : 1985 AGE: 39 INTERVAL HISTORY: cedric Cameron is 39 yr old male with hx of testicular cancer . patient completed chemotherapy . Patient have no new complaints Medications and Supplements - Mounjaro 2.3 mg - Causes nausea - Ozempic Review of Systems Respiratory: Positive for cough. Objective: Laboratory, Imaging, and Diagnostic Test Results - CT scan (September 19, 2024): All good - CT scan (October 22, 2024): - Left maxillary sinus: Infection noted - Lungs: Fully involved, consistent with endobronchial infection - Right lung: Particularly affected - Left lung: Also present - Labs (September 2024): All good Obesity Assessment: Patient's weight is contributing to poor diabetes control and overall health complications. Current weight loss efforts have been insufficient. 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 2018: Mr. Roche had a right orchiectomy for what appears to be right inguinal hernia repair according to Mr. Roche. 08/2022: Mr. Roche had a left orchiectomy at [facility] oncology history from [facility] 07/07/2023: CT scan of the abdomen and pelvis with IV contrast 07/07/2023: CT scan of the chest without contrast 07/24/2023: Beta-hCG 7. 08/08/2022: Beta-hCG 16. 08/21/2023: Patient was started on cycle 1 of BEP chemotherapy. 09/11/2023: Mr. Roche is started on cycle 2 of BEP chemotherapy. 09/12/2023: Beta-hCG less than 5 10/25/2023: Patient completed third cycle of BEP chemotherapy. 11/21/2023: Beta-hCG less than 0, AFP 2.70 12/15/2023: CT scan of the neck, chest and abdomen with and without contrast OTHER MEDICAL HISTORY/CONDITIONS: Testicular?cancer?-?dx?08/2022 GERD Left orchiectomy - 08/2022 - [facility] Right orchiectomy - 2018 - Dr. Derrick Cespedes Right inguinal hernia repair - age 24 FAMILY HISTORY: Cancer History:?Mat hbethsmwwas-yckixddvtf-va 60's;Mat aunt-breast - dx 50's SOCIAL HISTORY: Occupational?History:?Unemployed Education?Level:?Completed High School Marital?Status:? Tobacco?Use:?Denies ETOH?Use:?5-6?beers/week?x?21?yrs Drug?Note:?Denies Social?History?Note:?Lives?with? MEDICATIONS: 1. fluconazole - 150 mg 1 tab Daily 2. hydroxyzine HCl - 25 mg 1 tab Every day before sleep 3. insulin asp prt-insulin aspart - 100 unit/mL (70-30) 1 Daily 4. Jardiance - 25 mg 1 tab Daily 5. levoFLOXacin - 750 mg 1 tab Daily 6. metFORMIN - 1,000 mg 1 tab Twice a Day 7. Ozempic - 0.25 mg or 0.5 mg (2 mg/3 mL) Weekly 8. pantoprazole - 20 mg 1 Daily 9. testosterone - 20.25 mg/1.25 gram (1.62 %) 81 mg Daily Medications Last Reconciled by Irena Davila MD on 02/17/2025 ALLERGIES: No Known Drug Allergies REVIEW OF SYSTEMS: A complete 14-point review of systems was performed and is negative except as noted in interval history. PHYSICAL EXAMINATION: VITAL SIGNS: Temperature?98.5, B/P?149/98, Oxygen?Saturation?96% Weight?234?lbs PAIN: 0 - No pain ECOG Performance Status: 0 - Asymptomatic and fully active GENERAL APPEARANCE: Appears well, in no apparent distress, appropriately interactive. HEENT: Normocephalic, no temporal wasting, normal conjunctiva, no scleral icterus, normal hearing, lips without lesions, neck normal range of motion. CARDIOVASCULAR: Not assessed. PULMONARY: Normal respiratory effort, no respiratory distress or use of accessory muscles, speaking in full sentences, no tachypnea. EXTREMITIES: No pedal edema or cyanosis. SKIN: Normal skin appearance. NEUROLOGIC: Alert and oriented x4. PSHYCHIATRIC: Appropriate affect, mood normal, behavior normal, intact thought and speech. LABORATORY DATA: I have personally reviewed and interpreted each of the patient?s relevant lab tests, abnormal findings are below: Date 08/14/24 09/19/24 ??WHITE?BLOOD?COUNT?(Thou/mm3) 8.5 6.4 ??RED?BLOOD?COUNT?(Miln/mm3) 5.11 5.08 ??HEMOGLOBIN?(gm/dl) 16.3?H 16.5?H ??HEMATOCRIT?(%) 46.8 46.6 ??PLATELET?COUNT?(Thou/mm3) 232 220 ??NEUTROPHILS?%,?AUTO?(%) 75 73 ??LYMPH?%,?AUTO?(%) 14 16 ??NEUTROPHILS,?AUTO?(Thou/mm3) 6.4 4.6 ??GLUCOSE,RANDOM?(mg/dL) 113?H 158?H ??BLOOD?UREA?NITROGEN?(mg/dL) 8?L 7?L ??CREATININE?(mg/dL) 0.90 0.90 ??SODIUM?(mmol/L) 136 137 ??POTASSIUM?(mmol/L) 3.8 3.8 ??CHLORIDE?(mmol/L) 102 101 ??CrCl?(CandG)?(ml/min) 125.21 124.76 ??AST/SGOT?(Unit/L) 41?H 57?H ??ALT/SGPT?(Unit/L) 82?H 113?H ??ALKALINE?PHOSPHATASE?(Unit/L) 94 96 ??BILIRUBIN,?TOTAL?(mg/dL) 0.5 0.4 ??PROTEIN?TOTAL?(gm/dl) 7.4 7.5 ??ALBUMIN,?SERUM?(gm/dl) 4.7 4.6 ??GLOBULIN?(gm/dl) 2.7 2.9 ??ALBUMIN/GLOBULIN?RATIO 1.7 1.6 ??CALCIUM,?SERUM?(mg/dL) 9.3 9.0 ??CALCIUM?SERUM?(CORRECTED)?(mg/dL) 9.3 9.0 ASSESSMENT/PLAN: 1. 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 CT scan of the chest abdomen pelvis with and without contrast showed a 7 mm pulmonary nodule in the anterior segment of the right upper lobe and small abdominal pelvic lymph nodes measuring 3 to 8 mm as documented above are noted. S/p 3 cycles of BEP chemotherapy completed on 10/25/2023. Left-sided neck masS is not palpable any longer. His beta-hCG has decreased to less than 0, AFP 2.70 (11/21/2023) CBC, CMP, beta-hCG LDH AFP today as well as prior to next visit in 3 months. No suspicion for recurrence Patient has not completed labs for his tumor markers Uncontrolled Diabetes Mellitus Type 2 Assessment: Patient has poorly controlled diabetes with an elevated A1C (exact value not specified). The uncontrolled diabetes is contributing to multiple complications and infections. Patient's current glucose-lowering medication (possibly Mounjaro or Ozempic) at 2.3 mg is insufficient for glycemic control. The severity of diabetes-related complications at a young age indicates urgent need for improved management. Plan: - Increase dose of current glucose-lowering medication (specific medication and new dose not specified) - Order comprehensive blood work including glucose and A1C - Recommend weight loss - Educate on daily exercise importance - Advise on dietary modifications - Discuss risks of uncontrolled diabetes, including accelerated aging and organ damage - Follow up with primary care physician on Monday to review blood work and adjust diabetes management Severe Pulmonary Infection Assessment: CT scan from October 22 reveals severe lung involvement, particularly in the right lung but also present on the left, consistent with endobronchial infection. This is a significant change from the September 19 CT scan, which was reportedly normal. The rapid progression and severity of the infection are concerning, especially given the patient's diabetic status which may mask symptoms. Plan: - Initiate broad-spectrum antibiotics for 3 days (specific antibiotic not mentioned) - Initiate antifungal medication (specific medication not mentioned) - Order blood tests including tests for valley fever and HIV - Refer to racing manager for further evaluation and management - Advise immediate medical attention if symptoms worsen Left Maxillary Sinusitis Assessment: CT scan reveals a severe infection in the left maxillary sinus. Given the concurrent pulmonary infection and the patient's diabetic status, there is concern for a potentially fungal etiology and risk of spread to surrounding structures, including the eye. Plan: - Initiate broad-spectrum antibiotics (as part of treatment for pulmonary infection) - Initiate antifungal medication (as part of treatment for pulmonary infection) - Refer to ENT specialist for further evaluation and management - Advise patient to monitor for any eye-related symptoms ORDERS: Order # Description [id number] PET/CT of Skull to mid-thigh for Restaging [id number] bHCG - Quant (TM) + AFP [id number] Lactate Dehydrogenase (LDH) [id number] AFP + bHCG - Quant (TM) [id number] Lactate Dehydrogenase (LDH) [id number] Follow Up 3 Months RETURN TO CLINIC: I reviewed the diagnosis, prognosis, and recommended treatment/procedure options with the patient (and/or their legal insurance healthcare representative), including the potential benefits, risks, side effects and alternative therapies. We also discussed the option of no treatment and the possibility of clinical trial participation, if applicable. All questions were addressed, and they demonstrated understanding. They provided informed consent to proceed with the proposed plan of care. BILLING AND COMPLIANCE: I reviewed external records from providers outside my specialty as summarized above. I spent a total of 50 minutes on this patient?s care on the day of their visit excluding time spent related to any billed procedures. This time includes time spent with the patient as well as time spent documenting in the medical record, reviewing patients records and tests, obtaining history, placing orders, communicating with other healthcare professionals, counseling the patient, family or caregiver, and/or care coordination for the diagnoses above. Electronically Signed by: Eusebio Bob MD T: 1:12 PM CC: PCP: Referring: Arley Carmichael This document was completed utilizing speech recognition software. Grammatical errors, random word insertions, pronoun errors, and incomplete sentences are an occasional consequence of this system due to software limitations, ambient noise, and hardware issues. Any formal questions or concerns about the content, text or information contained within the body of this dictation should be directly addressed to the provider for clarification.
== END 2025-03-14 23:59 | disposition home or self-care (01) ==
LOC: SCTC 10:27
PROVIDERS: PCP Physician Assistant; Referring Provider Physician Assistant; Visit Provider Internal Medicine Hematology & Oncology
DX: Z08 Encounter for follow-up examination after completed treatment for malignant neoplasm (principal); Z85.47 Personal history of malignant neoplasm of testis; Z90.79 Acquired absence of other genital organ(s); R91.1 Solitary pulmonary nodule; E11.9 Type 2 diabetes mellitus without complications
CPT/HCPCS: 99212; G0463